=== PATIENT | female | born 1970 | race Caucasian/White ===

== ENCOUNTER 2018-03-14 18:18 | Emergency (ER) | payer OTHER ==
[~2018-03-14] VITALS: Ht 157.5 cm; Wt 68.0 kg
[2018-03-14 18:20] VITALS: Ht 157.5 cm; Wt 68.0 kg
[2018-03-14 20:44] VITALS: BP 148/93
== END 2018-03-14 20:44 | disposition home or self-care (01) ==
LOC: ED 18:18
DX: M25.561 Pain in right knee (principal); M54.2 Cervicalgia; V43.52XA Car driver injured in collision with other type car in traffic accident, initial encounter; Y93.I9 Activity, other involving external motion; Y92.89 Other specified places as the place of occurrence of the external cause; Y99.8 Other external cause status